=== PATIENT | male | born 1955 | race Caucasian/White ===

== ENCOUNTER → 2016-11-05 | Outpatient (CLI) | payer OTHER ==
--- NOTE | 2016-11-05 19:15 | DI ---
XR L-SPINE MIN 4 VW,11/05/2016 12:09 PM: Clinical History: Low back pain. Previous Exam: None at this facility. Findings: AP, lateral and bilateral obliques are obtained of the lumbar spine, and demonstrate significant dext roscoliosis of the lumbar spine centered at the L1/2 level. There is degenerative endplate changes no carlos. Peripheral vascular calcifications are seen. There are no pathologic calcifications. Impression: Diffuse degenerative changes of the lumbar spine.
== END ==
LOC: RAD 12:04
PROVIDERS: ATTEND Obstetrics & Gynecology Gynecology
DX: M54.5 Low back pain (principal); M79.604 Pain in right leg; M47.816 Spondylosis without myelopathy or radiculopathy, lumbar region
CPT/HCPCS: 72110

== ENCOUNTER → 2017-05-06 | Outpatient (CLI) | payer OTHER ==
--- NOTE | 2017-05-06 14:35 | DI ---
CERVICAL SPINE SERIES, 05/06/2017 1:11 PM: Clinical History: Neck and shoulder pain. Previous Exam: None at this facility. 3 routine upright views are submitted. The vertebral bodies are normal in height and size. There is d isc space narrowing at C3-4 and C5-6. There is posterior subluxation of C5 on C6 by about 1-2 mm. C1 articulates normally with C2 and the occiput. Prevertebral soft tissue planes are normal. Dense calci fications are present in both carotid bulbs. Reading: Chronic disc space narrowing at C3-4 and C5-6 with posterior subluxation of C5 on C6 by 1-2 mm.
--- NOTE | 2017-05-06 14:37 | DI ---
LEFT SHOULDER, 05/06/2017 1:11 PM: Clinical History: Left shoulder and neck pain. Previous Exam: None at this facility. 3 views are submitted. There is no acute soft tissue, osseous, or joint abnormality. The visualized p ortions of the left lung including the apex are normal. Reading: Normal left shoulder exam.
== END ==
LOC: RAD 13:06
PROVIDERS: ATTEND Obstetrics & Gynecology Gynecology
DX: M54.2 Cervicalgia (principal); M25.512 Pain in left shoulder; M48.02 Spinal stenosis, cervical region
CPT/HCPCS: 72040; 73030